=== PATIENT | male | born 1965 ===

== ENCOUNTER 2018-12-09 13:43 | Outpatient (CLI) | payer BC ==
--- NOTE | 2018-12-09 14:23 | XRAY Report ---
Reason: L RIB PAIN AND DYSPNEA Procedure Date: 12/09/2018 Accession Number: [id number] Procedure: XRN - Chest 2 View X-Ray CPT Code: 24508 FULL RESULT: EXAM: CHEST RADIOGRAPHY EXAM DATE: 12/09/2018 02:00 PM. CLINICAL HISTORY: L RIB PAIN AND DYSPNEA. COMPARISON: None. TECHNIQUE: 2 views. FINDINGS: Lungs/Pleura: No focal opacities evident. No pleural effusion. No pneumothorax. Normal volumes. Mediastinum: Heart and mediastinal contours are unremarkable. Other: None. IMPRESSION: No acute displaced fractures. No pneumothorax. No acute cardiopulmonary process. [facility]
== END 2018-12-09 13:44 | disposition home or self-care (01) ==
LOC: DI.N 13:43
PROVIDERS: ATTEND Physician Assistant Medical
DX: R07.81 Pleurodynia (principal); R06.00 Dyspnea, unspecified
CPT/HCPCS: 71046